=== PATIENT | male | born 1950 | race Two or more races ===

== ENCOUNTER 2017-07-08 13:53 | Inpatient (IN) | payer MEDICAID ==
[~2017-07-08] VITALS: Ht 180.3 cm; Wt 81.6 kg
[2017-07-08 13:53] VITALS: BP 162/78
[~2017-07-08 13:53] MED LIST: NKM
--- NOTE | 2017-07-08 14:56 | Emergency Room Report ---
History of Present Illness General Chief Complaint: Back Pain-No Injury Source: Patient Present Illness HPI 66YOM BIBEMS after fall in the street. Patient states was weak in right lower extremity and fell and also "twisted" his right neck. Was unable to stand/walk after History of degenerative lower back and c-spine from "multiple accidents and falls." Has PMD and has followed up with Neurosurgery who recommended surgery but patient had elected for holistic approach previously. He states repeatedly that his doctor was "more concerned about my neck and chance of paralysis." C/o right lower leg weakness and has occasional urinary retention but not bowel retention Denies saddle weakness, loss of sensation Also c/o tightness to right side of neck and sharp pains to right neck that radiates to shoulder and down right arm history of HTN Allergies: Coded Allergies: No Known Allergies (Unverified , 07/08/17) Patient History Past Medical History: HTN Past Surgical History: none Pertinent Family History: none Social History: Denies: smoking, alcohol use, drug use Immunizations: UTD Reviewed Nursing Documentation: PMH: Agreed, PSxH: Agreed Nursing Documentation-PMH Past Medical History: No History, Except For Hx Hypertension: Yes Review of Systems All Other Systems: negative except mentioned in HPI Physical Exam Vital Signs Date Time Temp Pulse Resp B/P (MAP) Pulse Ox O2 Delivery O2 Flow Rate FiO2 07/08/17 13:43 97.9 67 18 151/101 97 Room Air Sp02 EP Interpretation: reviewed, normal General Appearance: normal inspection, well appearing, no apparent distress, alert, GCS 15, non-toxic Head: normocephalic, atraumatic Eyes: bilateral eye PERRL, bilateral eye EOMI ENT: normal ENT inspection, hearing grossly normal, normal voice Neck: tender midline, other - Right paravertebral ttp Respiratory: normal inspection, lungs clear, normal breath sounds, no respiratory distress, no retraction, no wheezing Cardiovascular #1: regular rate, rhythm, no edema Gastrointestinal: normal inspection, normal bowel sounds, non tender, soft, no guarding, no hernia Genitourinary: no CVA tenderness Musculoskeletal: normal inspection, back normal, normal range of motion, Renetta' s Sign negative Neurologic: normal inspection, alert, responsive, 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 4/5 right lower extremity strength. Psychiatric: normal inspection, judgement/insight normal, mood/affect normal Skin: normal inspection, normal color, no rash Lymphatic: normal inspection Medical Decision Making Diagnostic Impression: Primary Impression: Fall Qualified Codes: W19.XXXA - Unspecified fall, initial encounter Additional Impressions: Weakness Cervicalgia Spinal stenosis in cervical region Protrusion of intervertebral disc of lumbosacral region ER Course S/p fall from ?acute onset right lower extremity weakness with neck sprain MRI c-spine and L-spine shows multi levels degenerative disease, disc protrusion Notable C5-6 spinal stenosis NO CORD COMPRESSION Labs ok Dr Garcia requesting Dr Sahni for med/surg admission med/surg bed at 433pm Last Vital Signs Date Time Temp Pulse Resp B/P (MAP) Pulse Ox O2 Delivery O2 Flow Rate FiO2 07/08/17 13:53 65 16 162/78 98 Room Air 07/08/17 13:43 97.9 Status: improved Disposition: ADMITTED INPATIENT Condition: Serious PANFILO WIN M.D. Jul 08, 2017 14:55
[2017-07-08 15:25] LABS: BASOPHILS % (AUTO) 0.6 % (0.0-2.0); EOSINOPHILS % (AUTO) 0.4 % (0.0-3.0); LYMPHOCYTES % (AUTO) 14.6 % (20.0-45.0); MEAN CORPUSCULAR HEMOGLOBIN 30.3 PG (27.0-31.0); MEAN CORPUSCULAR HGB CONC 33.2 G/DL (32.0-36.0); MEAN CORPUSCULAR VOLUME 91 FL (80-99); MEAN PLATELET VOLUME 7.3 FL (6.5-10.1); MONOCYTES % (AUTO) 5.2 % (1.0-10.0); NEUTROPHILS % (AUTO) 79.3 % (45.0-75.0); PLATELET COUNT 182 K/UL (150-450); RED BLOOD COUNT 5.44 M/UL (4.70-6.10); RED CELL DISTRIBUTION WIDTH 11.2 % (11.6-14.8); WHITE BLOOD COUNT 8.3 K/UL (4.8-10.8)
[2017-07-08 15:32] LABS: ALANINE AMINOTRANSFERASE 15 U/L (3-41); ALBUMIN/GLOBULIN RATIO 1.5 (1.0-2.7); ANION GAP 12 (5-15); ASPARTATE AMINO TRANSFERASE 21 U/L (5-40); CALCIUM 9.2 mg/dL (8.6-10.2); CARBON DIOXIDE 25 mEQ/L (20-30); CHLORIDE 105 mEQ/L (98-107); CREATININE 1.1 mg/dL (0.7-1.2); GLOMERULAR FILTRATION RATE > 60 mL/min (>60); HEMOLYSIS 9; POTASSIUM 3.8 mEQ/L (3.4-4.9); SODIUM 142 mEQ/L (135-145); TOTAL PROTEIN 6.7 g/dL (6.6-8.7)
[2017-07-08 16:14] VITALS: BP 165/85
--- NOTE | 2017-07-08 16:24 | Diagnostic Imaging Report ---
Indication: Neck pain low back pain, history of fall Technique: Sagittal T1 and T2 fast spin echo, sagittal STIR, axial T1 and T2 fast spin-echo images of the lumbar spine Comparison: None Findings: Vertebral body heights are preserved. Bony alignment is normal. Vertebral body marrow signal is preserved. There are hemangiomas within the L1 and L2 vertebral body, as well as within S2. The conus medullaris terminates at the L1 level. At L1-2, there is mild degenerative disc narrowing and irregularity of the inferior L1 endplates. There is mild circumferential annular bulge. This does not significantly impinge on the spinal canal, may result in mild compromise of the bilateral neural foramina. There is suggestion of a component of right paracentral disc protrusion which measures approximately 4 x 6 mm which may impinge upon the right lateral recess. At L2-3, there is mild degenerative disc narrowing. There is circumferential annular bulge. There is also a left paracentral disc protrusion, with the protruding disc extending approximately 4 mm beyond the posterior margin of the vertebral body. This may impinge upon the left lateral recess. There may be mild neural foraminal narrowing bilaterally as well. No significant spinal stenosis is demonstrated. Small amount of fluid is seen within the left facet. At L3-4, there is mild circumferential annular bulge. This results in mild compromise of the bilateral neural foramina, right greater than left, may impinge slightly upon the bilateral lateral recesses. No significant disc narrowing demonstrated. No significant spinal stenosis. At L4-5, there is mild central disc protrusion. This does not significantly compromise the spinal canal. There may be mild neural foraminal compromise bilaterally. The disc space is preserved. There is bilateral facet degeneration at this level . At the remaining disc levels, no significant disc bulge or protrusion, disc space narrowing, spinal stenosis, or neural foraminal stenosis. The bladder appears to be distended. The remaining extraspinal soft tissues are unremarkable. Impression: No evidence of acute bony trauma Multilevel degenerative changes, as delineated on a level by level basis above. Most significantly, there is right paracentral disc protrusion at L1-2 and left paracentral disc protrusion at L2-3, either of which may be significant Distended bladder incidentally noted
--- NOTE | 2017-07-08 16:30 | Diagnostic Imaging Report ---
Indication: Neck pain and low back pain, history of fall today Technique: Sagittal T1 FLAIR PROPELLER, sagittal T2 PROPELLOR, sagittal STIR, axial T2 PROPELLER, axial 3D COSMIC ASPIR images were obtained through the cervical spine Comparison: None Findings: Bony alignment is normal. Vertebral body marrow signal is preserved. Vertebral body heights are preserved. No significant soft tissue edema demonstrated. The intrinsic cord signal appears normal. At C4-5, there is mild circumferential annular bulge. This is not significantly impinge upon the spinal canal. The neural foramina are preserved. The disc space is preserved At C5-6, there is degenerative disc narrowing. There is circumferential annular bulge, which results in moderate narrowing of the spinal canal, minimum AP dimension 8 mm. A small amount of high signal is seen within the bulging disc posteriorly. There is also moderate bilateral neural foraminal stenosis at this level. At C6-7, there is minimal degenerative disc narrowing. There is mild circumferential annular bulge, which does not severely compromise the spinal canal. There is mild right and moderate to severe left neural foraminal stenosis, predominantly due to uncinate hypertrophy. At the remaining levels, no significant disc space narrowing, disc bulge or protrusion, spinal stenosis, or neural foraminal narrowing. The included extraspinal soft tissues are grossly unremarkable. Impression: No definite MRI evidence of acute bony or soft tissue trauma Multilevel degenerative changes, as detailed above. This is most significant at C5-6, where there is spinal stenosis due to disc bulge as well as bilateral neural foraminal stenosis. There is also possibly significant neural foraminal stenosis at C6-7
[2017-07-08 16:47] LABS: APPEARANCE,URINE CLEAR; KETONES,URINE NEGATIVE (NEGATIVE); LEUKOCYTE ESTERASE ,URINE NEGATIVE (NEGATIVE); NITRITE,URINE NEGATIVE (NEGATIVE); PH,URINE 8 (4.5-8.0); PROTEIN,URINE NEGATIVE (NEGATIVE); UROBILINOGEN,URINE NORMAL MG/DL (0.0-1.0)
[2017-07-08 17:37] VITALS: BP 153/95
[2017-07-08] MEDS ORDERED: Mylanta II UD 30ml ORAL PRN (17:45)
[2017-07-08] MEDS ORDERED: Morphine Sulfate 4mg/ml Inj IVP PRN (17:45)
[2017-07-08] MEDS ORDERED: Morphine Sulfate 2mg/ml Inj IVP PRN ×2 (17:45→18:00)
[2017-07-08] MEDS ORDERED: LORazepam Inj 2mg/ml 1ml IV PRN (17:45)
[2017-07-08 20:00] VITALS: BP 143/94
[2017-07-08] MEDS: Heparin 5000 units/ml inj SUBQ SCH (20:26)
[2017-07-08] MEDS ORDERED: Miralax 17gm pkt ORAL PRN (21:00)
[2017-07-08] MEDS ORDERED: Zolpidem 5mg tab ORAL PRN (21:00)
[2017-07-09] VITALS: BP 139/84
[2017-07-09 04:17] VITALS: BP 123/75
[2017-07-09 07:09] LABS: ALANINE AMINOTRANSFERASE 14 U/L (3-41); ALBUMIN/GLOBULIN RATIO 1.5 (1.0-2.7); ANION GAP 11 (5-15); ASPARTATE AMINO TRANSFERASE 19 U/L (5-40); CALCIUM 8.8 mg/dL (8.6-10.2); CARBON DIOXIDE 26 mEQ/L (20-30); CHLORIDE 108 mEQ/L (98-107); CREATININE 1.2 mg/dL (0.7-1.2); GLOMERULAR FILTRATION RATE > 60 mL/min (>60); HEMOLYSIS 6; SODIUM 145 mEQ/L (135-145); TOTAL PROTEIN 6.3 g/dL (6.6-8.7)
[2017-07-09 07:16] LABS: BASOPHILS % (AUTO) 0.7 % (0.0-2.0); EOSINOPHILS % (AUTO) 0.7 % (0.0-3.0); LYMPHOCYTES % (AUTO) 27.5 % (20.0-45.0); MEAN CORPUSCULAR HEMOGLOBIN 31.8 PG (27.0-31.0); MEAN CORPUSCULAR HGB CONC 34.4 G/DL (32.0-36.0); MEAN CORPUSCULAR VOLUME 92 FL (80-99); MEAN PLATELET VOLUME 7.6 FL (6.5-10.1); NEUTROPHILS % (AUTO) 63.1 % (45.0-75.0); PLATELET COUNT 180 K/UL (150-450); RED BLOOD COUNT 5.05 M/UL (4.70-6.10); RED CELL DISTRIBUTION WIDTH 11.1 % (11.6-14.8)
[2017-07-09 08:00] VITALS: BP 158/100
--- NOTE | 2017-07-09 08:28 | Consultation ---
History of Present Illness General Date patient seen: Jul 09, 2017 Chief Complaint: Back Pain-No Injury Present Illness Allergies: Coded Allergies: No Known Allergies (Unverified , 07/08/17) Medication History Scheduled No Known Medications* (NKM - No Known Medications*), 0 ., (Reported) Patient History Healthcare decision maker Edel Lopez, guillermo Resuscitation status Full Code Advanced Directive on File No Physical Exam Last 24 Hour Vital Signs Date Time Temp Pulse Resp B/P (MAP) Pulse Ox O2 Delivery O2 Flow Rate FiO2 07/09/17 08:00 97.0 62 18 158/100 99 Room Air 07/09/17 04:17 98.2 59 21 123/75 99 Room Air 07/09/17 00:00 98.2 56 21 139/84 98 Room Air 07/08/17 20:00 98.2 64 20 143/94 97 Room Air 07/08/17 17:37 97.9 65 20 153/95 97 Room Air 07/08/17 17:09 98.3 62 14 165/85 98 Room Air 07/08/17 16:14 98.3 62 14 165/85 98 Room Air 07/08/17 13:53 65 16 162/78 98 Room Air 07/08/17 13:43 97.9 67 18 151/101 97 Room Air Laboratory Tests Test 07/08/17 14:57 07/08/17 16:33 07/09/17 05:35 White Blood Count 8.3 K/UL (4.8-10.8) 7.0 K/UL (4.8-10.8) Red Blood Count 5.44 M/UL (4.70-6.10) 5.05 M/UL (4.70-6.10) Hemoglobin 16.5 G/DL (14.2-18.0) 16.1 G/DL (14.2-18.0) Hematocrit 49.7 % (42.0-52.0) 46.6 % (42.0-52.0) Mean Corpuscular Volume 91 FL (80-99) 92 FL (80-99) Mean Corpuscular Hemoglobin 30.3 PG (27.0-31.0) 31.8 PG (27.0-31.0) H Mean Corpuscular Hemoglobin Concent 33.2 G/DL (32.0-36.0) 34.4 G/DL (32.0-36.0) Red Cell Distribution Width 11.2 % (11.6-14.8) L 11.1 % (11.6-14.8) L Platelet Count 182 K/UL (150-450) 180 K/UL (150-450) Mean Platelet Volume 7.3 FL (6.5-10.1) 7.6 FL (6.5-10.1) Neutrophils (%) (Auto) 79.3 % (45.0-75.0) H 63.1 % (45.0-75.0) Lymphocytes (%) (Auto) 14.6 % (20.0-45.0) L 27.5 % (20.0-45.0) Monocytes (%) (Auto) 5.2 % (1.0-10.0) 8.0 % (1.0-10.0) Eosinophils (%) (Auto) 0.4 % (0.0-3.0) 0.7 % (0.0-3.0) Basophils (%) (Auto) 0.6 % (0.0-2.0) 0.7 % (0.0-2.0) Sodium Level 142 mEQ/L (135-145) 145 mEQ/L (135-145) Potassium Level 3.8 mEQ/L (3.4-4.9) 4.0 mEQ/L (3.4-4.9) Chloride Level 105 mEQ/L (98-107) 108 mEQ/L (98-107) H Carbon Dioxide Level 25 mEQ/L (20-30) 26 mEQ/L (20-30) Anion Gap 12 (5-15) 11 (5-15) Blood Urea Nitrogen 14 mg/dL (7-23) 13 mg/dL (7-23) Creatinine 1.1 mg/dL (0.7-1.2) 1.2 mg/dL (0.7-1.2) Estimat Glomerular Filtration Rate > 60 mL/min (>60) > 60 mL/min (>60) Glucose Level 124 mg/dL (74-106) H 90 mg/dL (74-106) Calcium Level 9.2 mg/dL (8.6-10.2) 8.8 mg/dL (8.6-10.2) Total Bilirubin 0.3 mg/dL (0.0-1.2) 0.4 mg/dL (0.0-1.2) Aspartate Amino Transf (AST/SGOT) 21 U/L (5-40) 19 U/L (5-40) Alanine Aminotransferase (ALT/SGPT) 15 U/L (3-41) 14 U/L (3-41) Alkaline Phosphatase 50 U/L (40-129) 46 U/L (40-129) Total Protein 6.7 g/dL (6.6-8.7) 6.3 g/dL (6.6-8.7) L Albumin 4.1 g/dL (3.5-5.2) 3.8 g/dL (3.5-5.2) Globulin 2.6 g/dL 2.5 g/dL Albumin/Globulin Ratio 1.5 (1.0-2.7) 1.5 (1.0-2.7) Urine Color Pale yellow Urine Appearance Clear Urine pH 8 (4.5-8.0) Urine Specific [place] 1.010 (1.005-1.035) Urine Protein Negative (NEGATIVE) Urine Glucose (UA) Negative (NEGATIVE) Urine Ketones Negative (NEGATIVE) Urine Occult Blood Negative (NEGATIVE) Urine Nitrite Negative (NEGATIVE) Urine Bilirubin Negative (NEGATIVE) Urine Urobilinogen Normal MG/DL (0.0-1.0) Urine Leukocyte Esterase Negative (NEGATIVE) Thyroid Stimulating Hormone (TSH) 3.640 uIU/mL (0.300-4.500) Height (Feet): 5 Height (Inches): 11.00 Weight (Pounds): 180 Medications Current Medications Medications (Trade) Dose Ordered Sig/Amelia Route PRN Reason Start Time Stop Time Status Last Admin Dose Admin Acetaminophen (Tylenol) 650 mg Q4H PRN ORAL T>100.5 07/08/17 17:45 08/07/17 17:44 Al Hydroxide/Mg Hydroxide (Mylanta II) 30 ml Q6H PRN ORAL dyspepsia 07/08/17 17:45 08/07/17 17:44 Dextrose (Dextrose 50%) STAT PRN IV Hypoglycemia 07/08/17 17:45 08/07/17 17:44 Heparin Sodium (Porcine) (Heparin 5000 units/ml) 5,000 units EVERY 12 HOURS SUBQ 9/25/17 21:00 08/07/17 20:59 Lorazepam (Ativan 2mg/ml 1ml) 0.5 mg Q4H PRN IV For Anxiety 07/08/17 17:45 07/15/17 17:44 Morphine Sulfate (Morphine Sulfate) 2 mg Q4H PRN IVP Moderate Pain (Pain Scale 4-6) 07/08/17 18:00 07/15/17 17:44 Morphine Sulfate (Morphine Sulfate) 4 mg Q4H PRN IVP Severe Pain (Pain Scale 7-10) 07/08/17 17:45 07/15/17 17:44 Ondansetron HCl (Zofran) 4 mg Q6H PRN IVP Nausea & Vomiting 07/08/17 17:45 08/07/17 17:44 Polyethylene Glycol (Miralax) 17 gm HSPRN PRN ORAL Constipation 07/08/17 21:00 08/07/17 20:59 Zolpidem Tartrate (Ambien) 5 mg HSPRN PRN ORAL Insomnia 07/08/17 21:00 07/15/17 20:59 Assessment/Plan Assessment/Plan (1) Cervical and Lumbar DDD (2) Cervical and Lumbar Spondylosis (3) Cervical and Lumbar Herniated Disc (4) Cervical and Lumbar Radiculopathy (5) Cervical Spinal stenosis seen dictated ALTON NORMAN Jul 09, 2017 08:28
[2017-07-09] MEDS: Heparin 5000 units/ml inj SUBQ SCH ×2 (09:00→20:03)
[2017-07-09] MEDS ORDERED: Methocarbamol 500mg tab ORAL PRN (09:00)
[2017-07-09] MEDS ORDERED: Norco 5mg/325mg tab ORAL PRN (09:00)
[2017-07-09 12:00] VITALS: BP 156/94
--- NOTE | 2017-07-09 12:21 | Neurology Progress Note ---
Objective Physical Exam Last Vital Signs Date Time Temp Pulse Resp B/P (MAP) Pulse Ox O2 Delivery O2 Flow Rate FiO2 07/09/17 08:00 97.0 62 18 158/100 99 Room Air Laboratory Tests Test 07/08/17 14:57 07/08/17 16:33 07/09/17 05:35 White Blood Count 8.3 K/UL (4.8-10.8) 7.0 K/UL (4.8-10.8) Red Blood Count 5.44 M/UL (4.70-6.10) 5.05 M/UL (4.70-6.10) Hemoglobin 16.5 G/DL (14.2-18.0) 16.1 G/DL (14.2-18.0) Hematocrit 49.7 % (42.0-52.0) 46.6 % (42.0-52.0) Mean Corpuscular Volume 91 FL (80-99) 92 FL (80-99) Mean Corpuscular Hemoglobin 30.3 PG (27.0-31.0) 31.8 PG (27.0-31.0) H Mean Corpuscular Hemoglobin Concent 33.2 G/DL (32.0-36.0) 34.4 G/DL (32.0-36.0) Red Cell Distribution Width 11.2 % (11.6-14.8) L 11.1 % (11.6-14.8) L Platelet Count 182 K/UL (150-450) 180 K/UL (150-450) Mean Platelet Volume 7.3 FL (6.5-10.1) 7.6 FL (6.5-10.1) Neutrophils (%) (Auto) 79.3 % (45.0-75.0) H 63.1 % (45.0-75.0) Lymphocytes (%) (Auto) 14.6 % (20.0-45.0) L 27.5 % (20.0-45.0) Monocytes (%) (Auto) 5.2 % (1.0-10.0) 8.0 % (1.0-10.0) Eosinophils (%) (Auto) 0.4 % (0.0-3.0) 0.7 % (0.0-3.0) Basophils (%) (Auto) 0.6 % (0.0-2.0) 0.7 % (0.0-2.0) Sodium Level 142 mEQ/L (135-145) 145 mEQ/L (135-145) Potassium Level 3.8 mEQ/L (3.4-4.9) 4.0 mEQ/L (3.4-4.9) Chloride Level 105 mEQ/L (98-107) 108 mEQ/L (98-107) H Carbon Dioxide Level 25 mEQ/L (20-30) 26 mEQ/L (20-30) Anion Gap 12 (5-15) 11 (5-15) Blood Urea Nitrogen 14 mg/dL (7-23) 13 mg/dL (7-23) Creatinine 1.1 mg/dL (0.7-1.2) 1.2 mg/dL (0.7-1.2) Estimat Glomerular Filtration Rate > 60 mL/min (>60) > 60 mL/min (>60) Glucose Level 124 mg/dL (74-106) H 90 mg/dL (74-106) Calcium Level 9.2 mg/dL (8.6-10.2) 8.8 mg/dL (8.6-10.2) Total Bilirubin 0.3 mg/dL (0.0-1.2) 0.4 mg/dL (0.0-1.2) Aspartate Amino Transf (AST/SGOT) 21 U/L (5-40) 19 U/L (5-40) Alanine Aminotransferase (ALT/SGPT) 15 U/L (3-41) 14 U/L (3-41) Alkaline Phosphatase 50 U/L (40-129) 46 U/L (40-129) Total Protein 6.7 g/dL (6.6-8.7) 6.3 g/dL (6.6-8.7) L Albumin 4.1 g/dL (3.5-5.2) 3.8 g/dL (3.5-5.2) Globulin 2.6 g/dL 2.5 g/dL Albumin/Globulin Ratio 1.5 (1.0-2.7) 1.5 (1.0-2.7) Urine Color Pale yellow Urine Appearance Clear Urine pH 8 (4.5-8.0) Urine Specific [place] 1.010 (1.005-1.035) Urine Protein Negative (NEGATIVE) Urine Glucose (UA) Negative (NEGATIVE) Urine Ketones Negative (NEGATIVE) Urine Occult Blood Negative (NEGATIVE) Urine Nitrite Negative (NEGATIVE) Urine Bilirubin Negative (NEGATIVE) Urine Urobilinogen Normal MG/DL (0.0-1.0) Urine Leukocyte Esterase Negative (NEGATIVE) Thyroid Stimulating Hormone (TSH) 3.640 uIU/mL (0.300-4.500) Impression/Recommendations Recommendations #[id number] LUIS MUNIZ Jul 09, 2017 12:21
--- NOTE | 2017-07-09 12:55 | Consultation ---
History of Present Illness General Chief Complaint: Back Pain-No Injury Present Illness HPI 66YOM BIBEMS after fall in the street. Patient states was weak in right lower extremity and fell and also "twisted" his right neck. the pt has hx of anxiety d /o and has insomnia. the pt agreed to take remeron. the pt is very tense and has poor insight into his mental. the pt was explained about the side effects. the pt has no si/hi/manic/psychotic sxs. Allergies: Coded Allergies: No Known Allergies (Unverified , 07/08/17) Medication History Scheduled No Known Medications* (NKM - No Known Medications*), 0 ., (Reported) Patient History History Provided By: Patient, Medical Record, PMD Healthcare decision maker Edel Lopez, Resuscitation status Full Code Advanced Directive on File No Past Medical/Surgical History Past Medical/Surgical History: (1) Cervicalgia (2) Weakness (3) Fall (4) Spinal stenosis in cervical region (5) Protrusion of intervertebral disc of lumbosacral region Review of Systems Constitutional: Reports: weakness Psychiatric: Reports: prior hx, anxiety, depressed feelings, emotional problems Physical Exam General Appearance: alert, mild distress, thin Neurologic: alert, oriented x 3, responsive, depressed affect Last 24 Hour Vital Signs Date Time Temp Pulse Resp B/P (MAP) Pulse Ox O2 Delivery O2 Flow Rate FiO2 07/09/17 08:00 97.0 62 18 158/100 99 Room Air 07/09/17 04:17 98.2 59 21 123/75 99 Room Air 07/09/17 00:00 98.2 56 21 139/84 98 Room Air 07/08/17 20:00 98.2 64 20 143/94 97 Room Air 07/08/17 17:37 97.9 65 20 153/95 97 Room Air 07/08/17 17:09 98.3 62 14 165/85 98 Room Air 07/08/17 16:14 98.3 62 14 165/85 98 Room Air 07/08/17 13:53 65 16 162/78 98 Room Air 07/08/17 13:43 97.9 67 18 151/101 97 Room Air Laboratory Tests Test 07/08/17 14:57 07/08/17 16:33 07/09/17 05:35 White Blood Count 8.3 K/UL (4.8-10.8) 7.0 K/UL (4.8-10.8) Red Blood Count 5.44 M/UL (4.70-6.10) 5.05 M/UL (4.70-6.10) Hemoglobin 16.5 G/DL (14.2-18.0) 16.1 G/DL (14.2-18.0) Hematocrit 49.7 % (42.0-52.0) 46.6 % (42.0-52.0) Mean Corpuscular Volume 91 FL (80-99) 92 FL (80-99) Mean Corpuscular Hemoglobin 30.3 PG (27.0-31.0) 31.8 PG (27.0-31.0) H Mean Corpuscular Hemoglobin Concent 33.2 G/DL (32.0-36.0) 34.4 G/DL (32.0-36.0) Red Cell Distribution Width 11.2 % (11.6-14.8) L 11.1 % (11.6-14.8) L Platelet Count 182 K/UL (150-450) 180 K/UL (150-450) Mean Platelet Volume 7.3 FL (6.5-10.1) 7.6 FL (6.5-10.1) Neutrophils (%) (Auto) 79.3 % (45.0-75.0) H 63.1 % (45.0-75.0) Lymphocytes (%) (Auto) 14.6 % (20.0-45.0) L 27.5 % (20.0-45.0) Monocytes (%) (Auto) 5.2 % (1.0-10.0) 8.0 % (1.0-10.0) Eosinophils (%) (Auto) 0.4 % (0.0-3.0) 0.7 % (0.0-3.0) Basophils (%) (Auto) 0.6 % (0.0-2.0) 0.7 % (0.0-2.0) Sodium Level 142 mEQ/L (135-145) 145 mEQ/L (135-145) Potassium Level 3.8 mEQ/L (3.4-4.9) 4.0 mEQ/L (3.4-4.9) Chloride Level 105 mEQ/L (98-107) 108 mEQ/L (98-107) H Carbon Dioxide Level 25 mEQ/L (20-30) 26 mEQ/L (20-30) Anion Gap 12 (5-15) 11 (5-15) Blood Urea Nitrogen 14 mg/dL (7-23) 13 mg/dL (7-23) Creatinine 1.1 mg/dL (0.7-1.2) 1.2 mg/dL (0.7-1.2) Estimat Glomerular Filtration Rate > 60 mL/min (>60) > 60 mL/min (>60) Glucose Level 124 mg/dL (74-106) H 90 mg/dL (74-106) Calcium Level 9.2 mg/dL (8.6-10.2) 8.8 mg/dL (8.6-10.2) Total Bilirubin 0.3 mg/dL (0.0-1.2) 0.4 mg/dL (0.0-1.2) Aspartate Amino Transf (AST/SGOT) 21 U/L (5-40) 19 U/L (5-40) Alanine Aminotransferase (ALT/SGPT) 15 U/L (3-41) 14 U/L (3-41) Alkaline Phosphatase 50 U/L (40-129) 46 U/L (40-129) Total Protein 6.7 g/dL (6.6-8.7) 6.3 g/dL (6.6-8.7) L Albumin 4.1 g/dL (3.5-5.2) 3.8 g/dL (3.5-5.2) Globulin 2.6 g/dL 2.5 g/dL Albumin/Globulin Ratio 1.5 (1.0-2.7) 1.5 (1.0-2.7) Urine Color Pale yellow Urine Appearance Clear Urine pH 8 (4.5-8.0) Urine Specific [place] 1.010 (1.005-1.035) Urine Protein Negative (NEGATIVE) Urine Glucose (UA) Negative (NEGATIVE) Urine Ketones Negative (NEGATIVE) Urine Occult Blood Negative (NEGATIVE) Urine Nitrite Negative (NEGATIVE) Urine Bilirubin Negative (NEGATIVE) Urine Urobilinogen Normal MG/DL (0.0-1.0) Urine Leukocyte Esterase Negative (NEGATIVE) Thyroid Stimulating Hormone (TSH) 3.640 uIU/mL (0.300-4.500) Height (Feet): 5 Height (Inches): 11.00 Weight (Pounds): 180 Medications Current Medications Medications (Trade) Dose Ordered Sig/Amelia Route PRN Reason Start Time Stop Time Status Last Admin Dose Admin Acetaminophen (Tylenol) 650 mg Q4H PRN ORAL T>100.5 07/08/17 17:45 08/07/17 17:44 Acetaminophen/ Hydrocodone Bitart ([place] 5/325) 1 tab Q4H PRN ORAL Severe Pain (Pain Scale 7-10) 07/09/17 09:00 07/16/17 08:59 Al Hydroxide/Mg Hydroxide (Mylanta II) 30 ml Q6H PRN ORAL dyspepsia 07/08/17 17:45 08/07/17 17:44 Dextrose (Dextrose 50%) STAT PRN IV Hypoglycemia 07/08/17 17:45 08/07/17 17:44 Gabapentin (Neurontin) 300 mg THREE TIMES A DAY ORAL 07/09/17 09:00 08/08/17 08:59 Heparin Sodium (Porcine) (Heparin 5000 units/ml) 5,000 units EVERY 12 HOURS SUBQ 07/08/17 21:00 08/07/17 20:59 Lorazepam (Ativan 2mg/ml 1ml) 0.5 mg Q4H PRN IV For Anxiety 07/08/17 17:45 07/15/17 17:44 Methocarbamol (Robaxin) 500 mg Q8H PRN ORAL muscle spasm 07/09/17 09:00 08/08/17 08:59 Ondansetron HCl (Zofran) 4 mg Q6H PRN IVP Nausea & Vomiting 07/08/17 17:45 08/07/17 17:44 Polyethylene Glycol (Miralax) 17 gm HSPRN PRN ORAL Constipation 07/08/17 21:00 08/07/17 20:59 Zolpidem Tartrate (Ambien) 5 mg HSPRN PRN ORAL Insomnia 07/08/17 21:00 07/15/17 20:59 Assessment/Plan Status: stable, progressing Assessment/Plan Anxiety d/o remeron 7.5 mg qhs Khloe Carpenter M.D. Jul 09, 2017 12:55
[2017-07-09 16:00] VITALS: BP 161/98
--- NOTE | 2017-07-09 16:55 | Cardiac Electrophysiology PN ---
Subjective Subjective Consult dictated. DW family and Dr Davenport at bedside.[id number] Objective Last 24 Hour Vital Signs Date Time Temp Pulse Resp B/P (MAP) Pulse Ox O2 Delivery O2 Flow Rate FiO2 07/09/17 12:00 60 18 156/94 97 Room Air 07/09/17 08:00 97.0 62 18 158/100 99 Room Air 07/09/17 04:17 98.2 59 21 123/75 99 Room Air 07/09/17 00:00 98.2 56 21 139/84 98 Room Air 07/08/17 20:00 98.2 64 20 143/94 97 Room Air 07/08/17 17:37 97.9 65 20 153/95 97 Room Air 07/08/17 17:09 98.3 62 14 165/85 98 Room Air Laboratory Tests Test 07/09/17 05:35 White Blood Count 7.0 K/UL (4.8-10.8) Red Blood Count 5.05 M/UL (4.70-6.10) Hemoglobin 16.1 G/DL (14.2-18.0) Hematocrit 46.6 % (42.0-52.0) Mean Corpuscular Volume 92 FL (80-99) Mean Corpuscular Hemoglobin 31.8 PG (27.0-31.0) H Mean Corpuscular Hemoglobin Concent 34.4 G/DL (32.0-36.0) Red Cell Distribution Width 11.1 % (11.6-14.8) L Platelet Count 180 K/UL (150-450) Mean Platelet Volume 7.6 FL (6.5-10.1) Neutrophils (%) (Auto) 63.1 % (45.0-75.0) Lymphocytes (%) (Auto) 27.5 % (20.0-45.0) Monocytes (%) (Auto) 8.0 % (1.0-10.0) Eosinophils (%) (Auto) 0.7 % (0.0-3.0) Basophils (%) (Auto) 0.7 % (0.0-2.0) Sodium Level 145 mEQ/L (135-145) Potassium Level 4.0 mEQ/L (3.4-4.9) Chloride Level 108 mEQ/L (98-107) H Carbon Dioxide Level 26 mEQ/L (20-30) Anion Gap 11 (5-15) Blood Urea Nitrogen 13 mg/dL (7-23) Creatinine 1.2 mg/dL (0.7-1.2) Estimat Glomerular Filtration Rate > 60 mL/min (>60) Glucose Level 90 mg/dL (74-106) Calcium Level 8.8 mg/dL (8.6-10.2) Total Bilirubin 0.4 mg/dL (0.0-1.2) Aspartate Amino Transf (AST/SGOT) 19 U/L (5-40) Alanine Aminotransferase (ALT/SGPT) 14 U/L (3-41) Alkaline Phosphatase 46 U/L (40-129) Total Protein 6.3 g/dL (6.6-8.7) L Albumin 3.8 g/dL (3.5-5.2) Globulin 2.5 g/dL Albumin/Globulin Ratio 1.5 (1.0-2.7) Thyroid Stimulating Hormone (TSH) 3.640 uIU/mL (0.300-4.500) FELTON JAMES Jul 09, 2017 16:55
--- NOTE | 2017-07-09 16:58 | History & Physical ---
History and Physical History & Physicial Dictated for Int Med - Dr Sahni no. [id number]. MIGUELINA CARCAMO Jul 09, 2017 16:58
[2017-07-09 20:00] VITALS: BP 133/72
--- NOTE | 2017-07-09 20:15 | Consultation ---
DATE OF CONSULTATION: 07/09/2017 NEUROLOGICAL CONSULTATION CONSULTING PHYSICIAN: Layo Robertson M.D. REQUESTING PHYSICIAN: Pieter Sahni M.D. History Of Present Illness: This is a 66-year-old man seen in neurological consultation to evaluate persistent pain and discomfort in upper and lower back radiating to right upper and lower extremity. Lower extremity is causing intermittent give-way weakness with fall. According to the patient yesterday while on a street, his right leg gave out causing to fall twisting his upper and lower back. The patient remained lying on the ground and was unable to stand up or ambulate. The patient was brought to this facility, complaining of weakness in the right lower extremity, and occasional urinary retention. There was no loss of sensation. He complains of tightness to right side of the neck, radiating to the right shoulder down to the right arm. On admission, vital signs included blood pressure 151/101 and temperature 97.9 degrees. Stat imaging studies were requested including MRI of the cervical spine, this revealed no definitive signs of injury. There was a multilevel degenerative joint disease changes with annular bulging at C5-C6 with moderate narrowing of the spinal canal and moderate neural foraminal stenosis bilaterally. There was a nleeycom-ai-bmursd left neural foraminal stenosis at C6-C7 level. There was no cord compression or impingement upon exiting nerves noted. MRI of the lumbar spine revealed no fracture or dislocation. There was a component of right paracentral disk protrusion, which may impinge upon the right lateral recess at L1-L2 level, left paracentral disk protrusion at L2-L3 region, this may impinge up on left lateral recess, and at L4-L5 mild central disk protrusion. There is no evidence of acute fracture or dislocation, distended bladder accidentally noted. Lab work included normal CBC study. Chemistry panel with blood sugar 124. Normal TSH. Urinalysis was normal. While under observation, blood pressure fluctuating up to 158/100 and heart rate down to 56. Pain management assessment was obtained. His treatment now included Tylenol, Neurontin 300 mg t.i.d., subcutaneous heparin, Saragosa p.r.n., lorazepam p.r.n., Robaxin p.r.n., Zofran p.r.n., MiraLAX, and zolpidem. Past Medical History: The patient indicated that about 25 years ago, [place] and "assembler body" offered him some therapy, so he put his in a face-down, then jumped up and down on his lower back causing him severe "contractions of body and chest." He is not the same since, continued to have contractions sensation in his body, chest, but also face and neck. A few years later, he had an episode when he fell accidentally on his upper back. He could not move for one day "being like paralyzed." Periodically, he has exacerbation of his condition lasting up to three weeks usually provoked by bending over, developing acute spasming pain in his low back, difficulty moving his both lower extremities, and pain slightly subsiding in supine position, but completely interrupting his sleep. The patient indicated that he has chronic sleep abnormality claiming that he sleeps no more than two hours a night total. He instead "is praying and does holistic approach." SOCIAL HISTORY: . 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 No alcohol. No drug abuse. Nonsmoker. He is from [place], in and out traveling to [facility]. FAMILY HISTORY: Noncontributory. Review Of Systems: Currently complaining of pain in the mid and the right side of the lower back radiating as a tingling sensation to his right lower extremity, with the legs gives out sometimes. He has right side of the neck and upper back pain radiating to right shoulder blade and right upper extremity. At times, he feels like "nerve in my lower back goes all the way to my head, at that point, I cannot sleep." Previous treatment included Arthrotec, and use of Motrin and Tylenol which are not helping much. He has history of hypertension, benign prostatic hypertrophy, and he was told he has cardiomegaly. No chest pain. No palpitations. No respiratory problems. Denies abdominal pain or discomfort. No urine or bowel incontinence. He admits being depressed because of "my condition." PHYSICAL EXAMINATION: General: A well-developed and well-nourished man, not in acute distress, lying comfortably in bed. VITAL SIGNS: Stable. Blood pressure 158/100 and respirations 18. HEENT: Head, normocephalic. No evidence of trauma. Eyes, ears, and throat are clear. Neck: Rigid in all directions. There is palpable tenderness in the right cervical paraspinal region, right upper trapezius, and right cervical paraspinal area. There is acute tenderness to palpation over the lumbar paraspinal region. Straight leg raising test 10 degrees on the right and 15 degrees on the left, but able to sit up at the angle of at least 90 degrees. MUSCULOSKELETAL: Peripheral pulses 1+ symmetric. Mental Status: He is alert and oriented x3 with no evidence of aphasia or apraxia. Cognitive function normal. Emotionally labile, tense, anxious, somewhat depressed, and constantly asking to help his condition for the last 25 years. He indicated that he has resorted predominantly to holistic medicine and reluctant to take medications. Cranial Nerve II: Pupils both responding to light and accommodation. Extraocular movement intact. No nystagmus. CRANIAL NERVE V: Normal corneal responses. CRANIAL NERVE VII: Slight drooped right nasolabial fold. CRANIAL NERVE VIII: Normal hearing. CRANIAL NERVES IX THROUGH XII: Within normal limits. Motor Examination: Slight pronation drift at upper extremity, antalgic both lower extremities, but able to move against the gravity all limbs. Repetitive finger tapping, normal on the left, very slow on the right. Deep tendon reflexes, 1+ bilaterally and symmetric. Plantar responses mute. Sensory Examination: Decreased response to pin stimulation. Non-dermatomal distribution right upper and right lower extremity. Coordination: Normal uguwuo-[id number] test and unable to perform [id number]-ap-[id number] test. He was able to get up on his own, but very antalgic and very slow. Standing with a stooped position. Able to walk very slowly. IMPRESSION: 1. Cervical spondylosis with right C5 radiculopathy. 2. Lumbar spondylosis with right L5 radiculopathy. 3. Chronic pain syndrome. 4. Anxiety with somatization. 5. Rule out underlying depression. 6. Hypertension. RECOMMENDATION: 1. Get CHIKIS, sedimentation rate, CRP, B12, folate, thyroid function, and CPK. 2. Have a Psychiatry assessment. Start on antidepressants and antianxiety medications presumably Remeron to improve his sleep as well. 3. Continue with physical therapy applied to upper and lower back. No surgical treatment at this time necessary. Continue with anti-inflammatory treatment and muscle relaxants. Continue with Neurontin 300 mg daily and Robaxin one to two tablets at bedtime. Thank you for allowing me to see this interesting patient in neurological consultation. Layo Burt Robertson DR: PAMELA JOB#: [id number] CC:
--- NOTE | 2017-07-09 22:34 | Consultation ---
History of Present Illness General Date patient seen: Jul 09, 2017 Chief Complaint: Back Pain-No Injury Referring physician: Dr. Davenport Reason for Consultation: possible sleep apnea severe back pain Present Illness HPI 67 yo gentleman with HTN, BPH, history of fall with back injury not recent, history of remote back injury 35 years ago who presents to [facility] ER with c/o severe lower back pains. The patient also reported abnormalities with his sleep and admitted to waking up numerous times at nightime trying to catch his breath and gasping for air. I was asked to educate the patient regarding sleep apnea and also to evaluate the patient from an internal medicine point of view to address his severe low back pain and difficulty sleeping. I have discussed the need for an outpatient sleep study with the patient extensively and the risks of not properly diagnosing and treating a possible sleep apnea diagnosis. The patient does not appear morbidly obese and no history of tracheal or pharyngeal structure abnormalities. Allergies: Coded Allergies: No Known Allergies (Unverified , 07/08/17) Medication History Scheduled Amlodipine Besylate (Norvasc), 5 MG ORAL DAILY Gabapentin (Neurontin), 300 MG ORAL THREE TIMES A DAY Mirtazapine* (Mirtazapine*), 15 MG ORAL BEDTIME No Known Medications* (NKM - No Known Medications*), 0 ., (Reported) Scheduled PRN Hydrocodone Bit/Acetaminophen 5-325* ([place] 5-325*), 1 TAB ORAL Q4H PRN Methocarbamol* (Methocarbamol*), 500 MG ORAL Q8H PRN Patient History Healthcare decision maker Edel Lopez, Resuscitation status Full Code Advanced Directive on File No Past Medical/Surgical History Past Medical/Surgical History: (1) Cardiomegaly (2) HTN (hypertension) (3) BPH (benign prostatic hyperplasia) (4) Fall with injury (5) Bradycardia Review of Systems Constitutional: Reports: malaise, weakness, other - insomnia Musculoskeletal: Reports: back pain, joint pain, muscle pain, muscle stiffness Physical Exam General Appearance: WD/WN, no apparent distress Lines, tubes and drains: peripheral HEENT: normocephalic, atraumatic, anicteric, PERRL Neck: non-tender, normal alignment, supple, normal inspection Respiratory/Chest: chest wall non-tender, normal breath sounds, no respiratory distress, no accessory muscle use Breasts: no masses Cardiovascular/Chest: normal peripheral pulses, normal rate, regular rhythm, no JVD Abdomen: normal bowel sounds, non tender, soft, no organomegaly, no mass Genitourinary/Rectal: normal genital exam, normal rectal exam Extremities: normal range of motion, non-tender, normal inspection, no calf tenderness Skin Exam: normal pigmentation, warm/dry 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, no motor/sensory deficits Last 24 Hour Vital Signs Date Time Temp Pulse Resp B/P (MAP) Pulse Ox O2 Delivery O2 Flow Rate FiO2 07/09/17 20:00 98.1 51 18 133/72 98 Room Air 07/09/17 16:00 97.0 61 18 161/98 94 Room Air 07/09/17 12:00 60 18 156/94 97 Room Air 07/09/17 08:00 97.0 62 18 158/100 99 Room Air 07/09/17 04:17 98.2 59 21 123/75 99 Room Air 07/09/17 00:00 98.2 56 21 139/84 98 Room Air Intake and Output 07/09/17 07/10/17 19:00 07:00 Intake Total 350 ml Balance 350 ml Intake Oral 350 ml # Voids 2 # Bowel Movements 1 Laboratory Tests Test 07/09/17 05:35 White Blood Count 7.0 K/UL (4.8-10.8) Red Blood Count 5.05 M/UL (4.70-6.10) Hemoglobin 16.1 G/DL (14.2-18.0) Hematocrit 46.6 % (42.0-52.0) Mean Corpuscular Volume 92 FL (80-99) Mean Corpuscular Hemoglobin 31.8 PG (27.0-31.0) H Mean Corpuscular Hemoglobin Concent 34.4 G/DL (32.0-36.0) Red Cell Distribution Width 11.1 % (11.6-14.8) L Platelet Count 180 K/UL (150-450) Mean Platelet Volume 7.6 FL (6.5-10.1) Neutrophils (%) (Auto) 63.1 % (45.0-75.0) Lymphocytes (%) (Auto) 27.5 % (20.0-45.0) Monocytes (%) (Auto) 8.0 % (1.0-10.0) Eosinophils (%) (Auto) 0.7 % (0.0-3.0) Basophils (%) (Auto) 0.7 % (0.0-2.0) Sodium Level 145 mEQ/L (135-145) Potassium Level 4.0 mEQ/L (3.4-4.9) Chloride Level 108 mEQ/L (98-107) H Carbon Dioxide Level 26 mEQ/L (20-30) Anion Gap 11 (5-15) Blood Urea Nitrogen 13 mg/dL (7-23) Creatinine 1.2 mg/dL (0.7-1.2) Estimat Glomerular Filtration Rate > 60 mL/min (>60) Glucose Level 90 mg/dL (74-106) Calcium Level 8.8 mg/dL (8.6-10.2) Total Bilirubin 0.4 mg/dL (0.0-1.2) Aspartate Amino Transf (AST/SGOT) 19 U/L (5-40) Alanine Aminotransferase (ALT/SGPT) 14 U/L (3-41) Alkaline Phosphatase 46 U/L (40-129) Total Protein 6.3 g/dL (6.6-8.7) L Albumin 3.8 g/dL (3.5-5.2) Globulin 2.5 g/dL Albumin/Globulin Ratio 1.5 (1.0-2.7) Thyroid Stimulating Hormone (TSH) 3.640 uIU/mL (0.300-4.500) Height (Feet): 5 Height (Inches): 11.00 Weight (Pounds): 180 Medications Current Medications Medications (Trade) Dose Ordered Sig/Amelia Route PRN Reason Start Time Stop Time Status Last Admin Dose Admin Acetaminophen (Tylenol) 650 mg Q4H PRN ORAL T>100.5 07/08/17 17:45 08/07/17 17:44 Acetaminophen/ Hydrocodone Bitart ([place] 5/325) 1 tab Q4H PRN ORAL Severe Pain (Pain Scale 7-10) 07/09/17 09:00 07/16/17 08:59 Al Hydroxide/Mg Hydroxide (Mylanta II) 30 ml Q6H PRN ORAL dyspepsia 07/08/17 17:45 08/07/17 17:44 Amlodipine Besylate (Norvasc) 5 mg DAILY ORAL 07/10/17 09:00 08/09/17 08:59 Clonidine HCl (Catapres) 0.1 mg Q4H PRN ORAL hypertension 07/09/17 17:00 08/08/17 16:59 Dextrose (Dextrose 50%) STAT PRN IV Hypoglycemia 07/08/17 17:45 08/07/17 17:44 Gabapentin (Neurontin) 300 mg THREE TIMES A DAY ORAL 07/09/17 09:00 08/08/17 08:59 07/09/17 18:20 Heparin Sodium (Porcine) (Heparin 5000 units/ml) 5,000 units EVERY 12 HOURS SUBQ 07/08/17 21:00 08/07/17 20:59 Lorazepam (Ativan 2mg/ml 1ml) 0.5 mg Q4H PRN IV For Anxiety 07/08/17 17:45 07/15/17 17:44 Methocarbamol (Robaxin) 500 mg Q8H PRN ORAL muscle spasm 07/09/17 09:00 08/08/17 08:59 Mirtazapine (Remeron) 7.5 mg QHS ORAL 07/09/17 21:00 08/08/17 20:59 07/09/17 20:04 Ondansetron HCl (Zofran) 4 mg Q6H PRN IVP Nausea & Vomiting 07/08/17 17:45 08/07/17 17:44 Polyethylene Glycol (Miralax) 17 gm HSPRN PRN ORAL Constipation 07/08/17 21:00 08/07/17 20:59 Assessment/Plan Status: stable, progressing Assessment/Plan Fall with injury BPH (benign prostatic hyperplasia) HTN (hypertension) Protrusion of intervertebral disc of lumbosacral region Spinal stenosis in cervical region Insomnia Possible undiagnosed sleep apnea Plan Pain management Supplmental oxygen at nighttime Discussed with patient sleep study as out patient recommended PT/OT eval and training as tolerated Computed tomagraphy of lumbosacral spine examined HEYDI CASAREZ Jul 09, 2017 22:34
--- NOTE | 2017-07-10 03:15 | Consultation ---
DATE OF CONSULTATION: 07/09/2017 PAIN MANAGEMENT CONSULTATION CONSULTING PHYSICIAN: Ingrid Floyd M.D. PHYSICIAN MACHINE ADJUSTER: Tasneem Rosas REFERRING PHYSICIAN: Pieter Sahni M.D. CHIEF COMPLAINT: Neck and low back pain. History of present illness: This is a 66-year-old male, who is being seen on the Med/Surg floor of [facility] for initial comprehensive pain management consultation. The patient was having neck and low back pain for 25 years. It is a constant chronic pain, rating it a 9/10. He described the pain as a sharp, throbbing, stabbing, shooting pain radiating down bilateral upper and lower extremities, increased with movement, and nothing has been helping to relieve the pain. The patient was admitted under the care of Dr. Sahni. MRI of the cervical and lumbar spine were done and reviewed with the patient, recommend the patient to do extensive physical therapy and consult with a neurosurgeon and start the patient on Neurontin, Robaxin, and Bradley and discontinue the morphine, which the patient has on board at this time. The patient understands and he has no other complaints at this time. Past medical history: Neck pain, cardiomyopathy, hypertension, enlarged prostate. PAST SURGICAL HISTORY: Denies. Social history: Denies smoking tobacco, drinking alcohol, or drug abuse. ALLERGIES: No known drug allergies. MEDICATIONS: No known medications. Review of systems: Denies rash, fever, chills, sweating, dizziness, drowsiness, blurred vision, sore throat, or change in weight. No shortness of breath or chest pain. No nausea, vomiting, diarrhea, or blood in the stool or urine. No bowel or bladder incontinence. No dysuria. He is complaining of neck and low back pain. PHYSICAL EXAMINATION: GENERAL: Alert, awake, and oriented. Vital Signs: Blood pressure is 158/100, heart rate is 62, oxygen saturation 99%, respiratory rate 18, and temperature 97 degrees Fahrenheit. HEENT: PERRLA. Neck: Range of motion is decreased due to the patient's pain and condition. No tenderness to paracervical muscles. No adenopathy. LUNGS: Clear. HEART: Regular. ABDOMEN: Benign Back: Range of motion is decreased in flexion and extension with tenderness to paraspinal muscles. No tenderness to trapezius or rhomboid muscles. Extremities: Upper extremity range of motion is decreased due to the patient's condition. Motor is -4/5 in all muscles bilaterally. No cyanosis. No clubbing. No edema. Sensory is intact. Reflexes are not obtainable. No adenopathy. Lower extremity motion is decreased due to the patient's condition with motor being -4/5 in all muscles bilaterally. No cyanosis. No clubbing. No edema. Sensory is intact. Reflexes are not obtainable. No adenopathy. RADIOLOGY: 1. MRI of the cervical spine was done without contrast, impression multilevel degenerative changes, most significant at C5-C6 where there is spinal stenosis due to disk bulge as well as bilateral neuroforaminal stenosis at C6-C7. 2. MRI of the lumbar spine without contrast, impression multilevel degenerative changes, most significantly there is a right paracentral disk protrusion at L1-L2 and left paracentral disk appreciated L2-L3. Assessment And Plan: This is a 66-year-old male with cervical and lumbar degenerative disk disease, cervical lumbar spondylosis, cervical lumbar herniated disk, cervical and lumbar radiculopathy, and cervical spinal stenosis. At this time, the patient will be discontinued off the morphine, started on Bradley 5/325 mg one tablet every four hours as needed for severe pain, Robaxin 100 mg tablet every eight hours as needed for muscle spasm, and Neurontin 300 mg tablet three times a day. The patient was advised to do extensive physical therapy, and we recommend the patient to be seen by neurosurgeon for possible surgical intervention for the cervical spine and lumbar spine. The patient was discussed with Dr. Floyd and Dr. Floyd concurred. We will follow the patient. Thank you very much for the courtesy of this consultation. Ingrid Floyd M.D. BARRY Rosas DR: TERESE JOB#: [id number] CC:
[2017-07-10 04:00] VITALS: BP 140/79
[2017-07-10 07:16] LABS: ANION GAP 10 (5-15); CALCIUM 9.3 mg/dL (8.6-10.2); CARBON DIOXIDE 28 mEQ/L (20-30); CHLORIDE 107 mEQ/L (98-107); CREATININE 1.2 mg/dL (0.7-1.2); GLOMERULAR FILTRATION RATE > 60 mL/min (>60); HEMOLYSIS 8; POTASSIUM 4.3 mEQ/L (3.4-4.9); SODIUM 145 mEQ/L (135-145)
[2017-07-10 07:26] LABS: BASOPHILS % (AUTO) 0.9 % (0.0-2.0); LYMPHOCYTES % (AUTO) 34.2 % (20.0-45.0); MEAN CORPUSCULAR HEMOGLOBIN 31.5 PG (27.0-31.0); MEAN CORPUSCULAR HGB CONC 34.1 G/DL (32.0-36.0); MEAN CORPUSCULAR VOLUME 92 FL (80-99); MEAN PLATELET VOLUME 7.4 FL (6.5-10.1); MONOCYTES % (AUTO) 9.7 % (1.0-10.0); NEUTROPHILS % (AUTO) 54.3 % (45.0-75.0); PLATELET COUNT 176 K/UL (150-450); RED BLOOD COUNT 4.97 M/UL (4.70-6.10); RED CELL DISTRIBUTION WIDTH 11.2 % (11.6-14.8); WHITE BLOOD COUNT 6.5 K/UL (4.8-10.8)
[2017-07-10 08:37] VITALS: BP 147/85
--- NOTE | 2017-07-10 08:46 | History and Physical Report ---
DATE OF ADMISSION: 07/08/2017 DATE OF EVALUATION: 07/09/2017 Chief Complaint: The patient is a 66-year-old Mong[place]ian male who presents with complaint of right leg weakness. History Of Present Illness: The patient states he has history of low back pain. The patient states sometimes his right leg "gives out." The patient was walking on the sidewalk yesterday, 07/08/2017. The patient states his right leg "gave out." The patient fell on the sidewalk, this was at approximately 2 p.m. on 07/08/2017. The patient denies loss of consciousness or vertigo. The patient presented to [facility]. The patient is admitted for right leg weakness to rule out acute herniated nucleus pulposus. Review Of Systems: Constitutional: The patient denies weight loss or weight gain. The patient denies fevers or chills. HEENT: The patient denies ear or throat pain. The patient denies headache. Cardiovascular: The patient denies palpitations or chest pain. Chest: The patient denies wheeze or shortness of breath. Abdomen: The patient denies nausea, vomiting, diarrhea, or constipation. Genitourinary: The patient denies dysuria or increased frequency of urination. Neuromuscular: The patient denies seizures or generalized weakness. The patient does complain of right leg weakness as above. PAST MEDICAL HISTORY: Significant for: 1. Hypertension. 2. Chronic low back pain. 3. History of "enlarged heart." 4. Benign prostatic hypertrophy. PAST SURGICAL HISTORY: The patient denies. MEDICATIONS: The patient denies. ALLERGIES: No known drug allergies. Social History: The patient is . The patient denies tobacco use having quit 25 years previously. The patient denies alcohol use. The patient is retired. PHYSICAL EXAMINATION: Vital Signs: Temperature 97.9, respirations 20, pulse 65, and blood pressure 153/95. General: The patient is a well-developed and well-nourished Mong[place]ian male in no apparent distress. HEENT: Eyes, pupils equal and responsive to light and accommodation. Extraocular movements are intact. NECK: Supple. No lymphadenopathy. Chest: Lungs are clear to auscultation bilaterally without wheezes or rales. Cardiovascular: Regular rhythm and rate. S1, S2 normal without murmurs, rubs, or gallops. Abdomen: Soft, nontender, and nondistended. Positive bowel sounds. No evidence of hepatosplenomegaly. Currently, no rebound or guarding noted. EXTREMITIES: Negative for clubbing, cyanosis, or edema. RECTAL: Refused. GENITAL: Refused. Neurological: The patient has 3/5 motor strength on the right upper and right lower extremity. Motor strength is 5/5 . Deep tendon reflexes are 2+, plantar. Laboratory Studies: WBC 8.3, hemoglobin 16.5, hematocrit 49.7, and platelets 182,000. Sodium 142, potassium 3.8, chloride 105, CO2 25, BUN 14, creatinine 1.1, glucose 128. MRI of the cervical spine and lumbar spine are pending. ASSESSMENT: This is a 66-year-old white male with: 1. Chronic low back pain. 2. Weakness of the right lower extremity. 3. Hypertension. 4. Cardiomegaly. 5. Benign prostatic hypertrophy. TREATMENT: 1. Weakness of the right leg/chronic low back pain. An MRI of the lumbar and cervical spine are pending. Neurology consultation has been obtained with Dr. Robertson. This may be herniated nucleus pulposus and spinal stenosis. We will follow recommendation of neurology. 2. Hypertension. Cardiology consultation has been obtained with Dr. Osbaldo Sheffield. The patient denies current medications. We will follow recommendation of cardiology. 3. Cardiomegaly. Cardiology consultation has been obtained with Dr. Osbaldo Sheffield. An echocardiogram is pending. 4. Benign prostatic hypertrophy. Arnaldo Davenport M.D. DR: Ela JOB#: [id number] CC:
--- NOTE | 2017-07-10 08:46 | Consultation ---
DATE OF CONSULTATION: 07/09/2017 CARDIOLOGY CONSULTATION REFERRING PHYSICIAN: Pieter Sahni M.D. Reason For Consultation: Management of hypertension and cardiomyopathy. History of Present Illness: The patient is a 66-year-old Samoan gentleman with history of hypertension and degenerative disk disease as well as cervical spine low back from multiple accidents and falls. The patient's PMD has followed up with Neurosurgery recommended surgery but the patient elected holistic approach. The patient also has an echocardiogram and he was told that he has an enlarged heart, but he has never seen a lithographic etcher. Cardiology consultation was obtained for further evaluation and management. PAST MEDICAL HISTORY: Hypertension. MEDICATIONS: His medications per reconciliation. SOCIAL HISTORY: He lives at home. He does smoke or drink alcohol. FAMILY HISTORY: Noncontributory. Review of Systems: Review of systems was thoroughly performed and was negative other than what was mentioned in the history of present illness. PHYSICAL EXAMINATION: Vital Signs: Blood pressure is 156/94, pulse 60, respirations 18, and temperature 97 degrees. HEAD AND NECK: No JVD. LUNGS: Clear. CARDIOVASCULAR: Regular S1 and S2 with no gallop. ABDOMEN: Soft. EXTREMITIES: There is no pitting edema. Laboratory And Diagnostic Data: White count of 7, hemoglobin , hematocrit 46.1, and platelet of 180. Sodium 145, potassium 4.0, BUN of 13, creatinine 1.2 and glucose of 93. TSH 3.64. His urinalysis is negative. ASSESSMENT AND PLAN: 1. History of enlarged heart. He does not have any clinical signs or symptoms of congestive heart failure. We will check a brain natriuretic peptide as well as echocardiogram as well as EKG. 2. Hypertension. We will start the patient on Norvasc 5 mg daily. I will continue to follow the patient clinically. 3. Anxiety and depression. 4. Spinal stenosis. Surgical evaluation for protrusion. Further evaluation by spine surgery. Thank very much, Dr. Sahin, for allowing me to participate in the care of this patient. Please do not hesitate to contact for any questions regarding my evaluation. Osbaldo Sheffield M.D. DR: ORIANA JOB#: [id number] CC:
[2017-07-10] MEDS: Heparin 5000 units/ml inj SUBQ SCH (09:00)
--- NOTE | 2017-07-10 11:34 | Internal Med Progress Note ---
Subjective Date of Service: Jul 10, 2017 Physician Name Arnaldo Carcamo Attending Physician Pieter Sahni MD Current Medications Medications (Trade) Dose Ordered Sig/Amelia Route PRN Reason Start Time Stop Time Status Last Admin Dose Admin Acetaminophen (Tylenol) 650 mg Q4H PRN ORAL T>100.5 07/08/17 17:45 08/07/17 17:44 Acetaminophen/ Hydrocodone Bitart (Hassell 5/325) 1 tab Q4H PRN ORAL Severe Pain (Pain Scale 7-10) 07/09/17 09:00 07/16/17 08:59 Al Hydroxide/Mg Hydroxide (Mylanta II) 30 ml Q6H PRN ORAL dyspepsia 07/08/17 17:45 08/07/17 17:44 Amlodipine Besylate (Norvasc) 5 mg DAILY ORAL 07/10/17 09:00 08/09/17 08:59 07/10/17 09:03 Clonidine HCl (Catapres) 0.1 mg Q4H PRN ORAL hypertension 07/09/17 17:00 08/08/17 16:59 Dextrose (Dextrose 50%) STAT PRN IV Hypoglycemia 07/08/17 17:45 08/07/17 17:44 Gabapentin (Neurontin) 300 mg THREE TIMES A DAY ORAL 07/09/17 09:00 08/08/17 08:59 07/10/17 09:03 Heparin Sodium (Porcine) (Heparin 5000 units/ml) 5,000 units EVERY 12 HOURS SUBQ 07/08/17 21:00 08/07/17 20:59 Lorazepam (Ativan 2mg/ml 1ml) 0.5 mg Q4H PRN IV For Anxiety 07/08/17 17:45 07/15/17 17:44 Methocarbamol (Robaxin) 500 mg Q8H PRN ORAL muscle spasm 07/09/17 09:00 08/08/17 08:59 Mirtazapine (Remeron) 7.5 mg QHS ORAL 07/09/17 21:00 08/08/17 20:59 07/09/17 20:04 Ondansetron HCl (Zofran) 4 mg Q6H PRN IVP Nausea & Vomiting 07/08/17 17:45 08/07/17 17:44 Polyethylene Glycol (Miralax) 17 gm HSPRN PRN ORAL Constipation 07/08/17 21:00 08/07/17 20:59 Allergies: Coded Allergies: No Known Allergies (Unverified , 07/08/17) ROS Limited/Unobtainable: No Constitutional: Reports: no symptoms HEENT: Reports: no symptoms Cardiovascular: Reports: no symptoms Respiratory: Reports: no symptoms Gastrointestinal/Abdominal: Reports: no symptoms Genitourinary: Reports: no symptoms Neurologic/Psychiatric: Reports: no symptoms Subjective 66 YO M admitted with neck and low back pain. Also right leg weakness. Cover for [facility] Med-Dr Sahni. Objective Last Vital Signs Date Time Temp Pulse Resp B/P (MAP) Pulse Ox O2 Delivery O2 Flow Rate FiO2 07/10/17 09:03 61 147/85 07/10/17 08:37 98.2 19 95 Room Air General Appearance: WD/WN, no apparent distress, thin EENT: PERRL/EOMI, normal ENT inspection Neck: non-tender, normal alignment, supple, normal inspection Cardiovascular: normal peripheral pulses, normal rate, regular rhythm, no gallop/murmur, no JVD Respiratory/Chest: chest wall non-tender, lungs clear, normal breath sounds, no respiratory distress, no accessory muscle use Abdomen: normal bowel sounds, non tender, soft, no organomegaly, no mass Extremities: other - weakness right leg and right arm Neurologic: flexo operator II-XII grossly normal, other - weakness right upper and lower ext Skin: normal pigmentation, warm/dry Laboratory Tests Test 07/10/17 05:40 White Blood Count 6.5 K/UL (4.8-10.8) Red Blood Count 4.97 M/UL (4.70-6.10) Hemoglobin 15.7 G/DL (14.2-18.0) Hematocrit 45.9 % (42.0-52.0) Mean Corpuscular Volume 92 FL (80-99) Mean Corpuscular Hemoglobin 31.5 PG (27.0-31.0) H Mean Corpuscular Hemoglobin Concent 34.1 G/DL (32.0-36.0) Red Cell Distribution Width 11.2 % (11.6-14.8) L Platelet Count 176 K/UL (150-450) Mean Platelet Volume 7.4 FL (6.5-10.1) Neutrophils (%) (Auto) 54.3 % (45.0-75.0) Lymphocytes (%) (Auto) 34.2 % (20.0-45.0) Monocytes (%) (Auto) 9.7 % (1.0-10.0) Eosinophils (%) (Auto) 1.0 % (0.0-3.0) Basophils (%) (Auto) 0.9 % (0.0-2.0) Sodium Level 145 mEQ/L (135-145) Potassium Level 4.3 mEQ/L (3.4-4.9) Chloride Level 107 mEQ/L (98-107) Carbon Dioxide Level 28 mEQ/L (20-30) Anion Gap 10 (5-15) Blood Urea Nitrogen 14 mg/dL (7-23) Creatinine 1.2 mg/dL (0.7-1.2) Estimat Glomerular Filtration Rate > 60 mL/min (>60) Glucose Level 87 mg/dL (74-106) Calcium Level 9.3 mg/dL (8.6-10.2) Pro-B-Type Natriuretic Peptide 56 pg/mL (0-125) Assessment/Plan Problem List: (1) Fall with injury (2) HTN (hypertension) Assessment & Plan: Cont norvasc (3) Bradycardia Assessment & Plan: See cardiology note. (4) Cardiomegaly Assessment & Plan: await Echocardiogram. See cardiology note. (5) BPH (benign prostatic hyperplasia) Assessment & Plan: start flomax (6) Spinal stenosis in cervical region Assessment & Plan: See neurology note. (7) Protrusion of intervertebral disc of lumbosacral region Assessment & Plan: await ortho consult. (8) Weakness Status: not improved ARNALDO CARCAMO Jul 10, 2017 11:34
[2017-07-10 12:07] VITALS: BP 159/83
--- NOTE | 2017-07-10 15:00 | Cardiology Report ---
APPROVED REPORT EXAM: Two-dimensional and M-mode echocardiogram with Doppler and color Doppler. INDICATION Congestive Heart Failure M-Mode DIMENSIONS IVSd1.4 (0.7-1.1cm)Left Atrium (MM)3.7 (1.6-4.0cm) LVDd4.2 (3.5-5.6cm)Aortic Root3.1 (2.0-3.7cm) PWd1.2 (0.7-1.1cm)Aortic Cusp Exc.2.0 (1.5-2.0cm) LVDs2.8 (2.5-4.0cm) PWs2.0 cm Normal left ventricular chamber size, systolic function and wall motion. Left ventricular ejection fraction estimated to be 65 %. Mild left ventricular hypertrophy by 2-D. No evidence of pericardial effusion. Mild bi-atrial enlargement. Left atrial size at upper limits of normal. Right ventricular chamber size is within normal limits. Focal aortic valve sclerosis with adequate cusp excursion. Thickened mitral valve leaflets with normal excursion. Mitral annulus and aortic root calcification. Pulmonic valve not well visualized. Normal tricuspid valve structure. IVC at normal size with physiologic collapse. A color flow and spectral Doppler study was performed and revealed: Moderate aortic regurgitation. Mild mitral regurgitation. Mitral diastolic velocities suggest reduced left ventricular relaxation c/w mild LV diastolic dysfunction (Grade I ). Trace tricuspid regurgitation. Tricuspid systolic velocities suggests peak right ventricular systolic pressure of 17 mmHg.
[2017-07-10] MEDS ORDERED: METHOCARBAMOL500 MG ORAL (16:11)
[2017-07-10] MEDS ORDERED: NORVASC5 MG ORAL (16:11)
[2017-07-10] MEDS ORDERED: NEURONTIN300 MG ORAL (16:11)
[2017-07-10] MEDS ORDERED: NORCO 5-325 TA1 EACH ORAL (16:11)
[2017-07-10] MEDS ORDERED: MIRTAZAPINE15 M3 ORAL (16:11)
--- NOTE | 2017-07-10 16:31 | Pulmonology Progress Note ---
Assessment/Plan Problems: (1) Fall with injury (2) BPH (benign prostatic hyperplasia) (3) HTN (hypertension) (4) Protrusion of intervertebral disc of lumbosacral region (5) Spinal stenosis in cervical region Assessment/Plan wants to go home neuro note reviewed dc meds written including Subjective Interval Events: feeling better Allergies: Coded Allergies: No Known Allergies (Unverified , 07/08/17) Objective Last 24 Hour Vital Signs Date Time Temp Pulse Resp B/P (MAP) Pulse Ox O2 Delivery O2 Flow Rate FiO2 07/10/17 12:07 98.0 56 18 159/83 96 Room Air 07/10/17 09:03 61 147/85 07/10/17 08:37 98.2 61 19 147/85 95 Room Air 07/10/17 07:00 65 07/10/17 04:00 98.2 44 20 140/79 97 Room Air 07/09/17 20:00 98.1 51 18 133/72 98 Room Air Intake and Output 07/10/17 07/11/17 19:00 07:00 Intake Total 500 ml Output Total 550 ml Balance -50 ml Intake Oral 500 ml Output Urine Total 550 ml General Appearance: WD/WN HEENT: normocephalic, atraumatic Respiratory/Chest: chest wall non-tender, normal breath sounds Cardiovascular: normal peripheral pulses, normal rate Abdomen: normal bowel sounds, no organomegaly Genitourinary: normal external genitalia Extremities: no clubbing Skin: no rash Laboratory Tests 07/10/17 05:40: White Blood Count 6.5, Red Blood Count 4.97, Hemoglobin 15.7, Hematocrit 45.9, Mean Corpuscular Volume 92, Mean Corpuscular Hemoglobin 31.5H, Mean Corpuscular Hemoglobin Concent 34.1, Red Cell Distribution Width 11.2L, Platelet Count 176, Mean Platelet Volume 7.4, Neutrophils (%) (Auto) 54.3, Lymphocytes (%) (Auto) 34.2, Monocytes (%) (Auto) 9.7, Eosinophils (%) (Auto) 1.0, Basophils (%) (Auto ) 0.9, Sodium Level 145, Potassium Level 4.3, Chloride Level 107, Carbon Dioxide Level 28, Anion Gap 10, Blood Urea Nitrogen 14, Creatinine 1.2, Estimat Glomerular Filtration Rate > 60, Glucose Level 87, Calcium Level 9.3, Pro-B- Type Natriuretic Peptide 56 Current Medications Medications (Trade) Dose Ordered Sig/Amelia Route PRN Reason Start Time Stop Time Status Last Admin Dose Admin Acetaminophen (Tylenol) 650 mg Q4H PRN ORAL T>100.5 07/08/17 17:45 08/07/17 17:44 Acetaminophen/ Hydrocodone Bitart (Julian 5/325) 1 tab Q4H PRN ORAL Severe Pain (Pain Scale 7-10) 07/09/17 09:00 07/16/17 08:59 Al Hydroxide/Mg Hydroxide (Mylanta II) 30 ml Q6H PRN ORAL dyspepsia 07/08/17 17:45 08/07/17 17:44 Amlodipine Besylate (Norvasc) 5 mg DAILY ORAL 07/10/17 09:00 08/09/17 08:59 07/10/17 09:03 Clonidine HCl (Catapres) 0.1 mg Q4H PRN ORAL hypertension 07/09/17 17:00 08/08/17 16:59 Dextrose (Dextrose 50%) STAT PRN IV Hypoglycemia 07/08/17 17:45 08/07/17 17:44 Gabapentin (Neurontin) 300 mg THREE TIMES A DAY ORAL 07/09/17 09:00 08/08/17 08:59 07/10/17 13:57 Heparin Sodium (Porcine) (Heparin 5000 units/ml) 5,000 units EVERY 12 HOURS SUBQ 07/08/17 21:00 08/07/17 20:59 Lorazepam (Ativan 2mg/ml 1ml) 0.5 mg Q4H PRN IV For Anxiety 07/08/17 17:45 07/15/17 17:44 Methocarbamol (Robaxin) 500 mg Q8H PRN ORAL muscle spasm 07/09/17 09:00 08/08/17 08:59 Mirtazapine (Remeron) 15 mg BEDTIME ORAL 07/10/17 21:00 08/09/17 20:59 Ondansetron HCl (Zofran) 4 mg Q6H PRN IVP Nausea & Vomiting 07/08/17 17:45 08/07/17 17:44 Polyethylene Glycol (Miralax) 17 gm HSPRN PRN ORAL Constipation 07/08/17 21:00 08/07/17 20:59 HEYDI CASAREZ Jul 10, 2017 16:31
--- NOTE | 2017-07-10 22:35 | General Progress Note ---
Assessment/Plan Status: stable, progressing Assessment/Plan anxiety d/o insomnia -remeron 15mg po qhs Subjective Neurologic/Psychiatric: Reports: anxiety, emotional problems Allergies: Coded Allergies: No Known Allergies (Unverified , 07/08/17) Subjective the sleep is improved on remeron however he asked for higher dosage Objective Last 24 Hour Vital Signs Date Time Temp Pulse Resp B/P (MAP) Pulse Ox O2 Delivery O2 Flow Rate FiO2 07/10/17 12:07 98.0 56 18 159/83 96 Room Air 07/10/17 09:03 61 147/85 07/10/17 08:37 98.2 61 19 147/85 95 Room Air 07/10/17 07:00 65 07/10/17 04:00 98.2 44 20 140/79 97 Room Air Intake and Output 07/10/17 07/11/17 19:00 07:00 Intake Total 500 ml Output Total 550 ml Balance -50 ml Intake Oral 500 ml Output Urine Total 550 ml Laboratory Tests 07/10/17 05:40: White Blood Count 6.5, Red Blood Count 4.97, Hemoglobin 15.7, Hematocrit 45.9, Mean Corpuscular Volume 92, Mean Corpuscular Hemoglobin 31.5H, Mean Corpuscular Hemoglobin Concent 34.1, Red Cell Distribution Width 11.2L, Platelet Count 176, Mean Platelet Volume 7.4, Neutrophils (%) (Auto) 54.3, Lymphocytes (%) (Auto) 34.2, Monocytes (%) (Auto) 9.7, Eosinophils (%) (Auto) 1.0, Basophils (%) (Auto ) 0.9, Sodium Level 145, Potassium Level 4.3, Chloride Level 107, Carbon Dioxide Level 28, Anion Gap 10, Blood Urea Nitrogen 14, Creatinine 1.2, Estimat Glomerular Filtration Rate > 60, Glucose Level 87, Calcium Level 9.3, Pro-B- Type Natriuretic Peptide 56 Height (Feet): 5 Height (Inches): 11.00 Weight (Pounds): 180 General Appearance: no apparent distress, alert, thin Neurologic: alert, oriented x 3, responsive, depressed affect Khloe Carpenter M.D. Jul 10, 2017 22:35
--- NOTE | 2017-07-12 08:02 | Discharge Summary ---
Discharge Summary Hospital Course Date of Admission Jul 08, 2017 at 15:48 Date of Discharge Jul 10, 2017 at 16:55 Admitting Diagnosis weakness ALEISHA Lopez is a 66 year old male who was admitted on Jul 08, 2017 at 15:48 for Weakness Hospital Course [id number] Discharge Discharge Disposition Patient was discharged to Home (01) Discharge Diagnoses: Mari Vitale NP Jul 12, 2017 08:02
--- NOTE | 2017-07-13 03:30 | Discharge Summary 2 SIG ---
DATE OF ADMISSION: 07/08/2017 DATE OF DISCHARGE: 07/10/2017 ATTENDING PHYSICIAN: Pieter Sahni M.D. CONSULTANTS: 1. Jimbo Gilmore M.D. 2. Khloe Carpenter M.D. 3. Ingrid Floyd M.D. 4. Layo Robertson M.D. 5. Osbaldo Sheffield M.D. Brief Hospital Course: The patient is a 66-year-old English male, who came complaining of right leg weakness. He has history of low back pain and stated sometimes his right leg gives out. He was walking on the sidewalk and eventually felt like the right leg gave out. He fell on the sidewalk. He presented to ED. On evaluation, lumbar MRI showed multiple degenerative changes with right paracentral disk protrusion at L1-L2 and left paracentral disk protrusion at L2-L3. There was no evidence of acute bony trauma. Cervical spine MRI showed no definite evidence of acute bony or soft tissue trauma. There were multilevel degenerative changes most significant at C5 through C6, where there is a spinal stenosis due to disk bulge as well as bilateral neural foraminal stenosis at C6-C7. He was given pain management and was started on Wayne q.4 h. p.r.n. with Robaxin q.8 h. p.r.n. and Neurontin 300 mg t.i.d. The patient has a history of anxiety disorder and insomnia and was started on Remeron 7.5 mg at bedtime. He was given Norvasc 5 mg daily for hypertension and underwent echocardiogram with findings of EF 65% and normal left ventricular size, function, and wall motion. He underwent physical therapy and was eventually discharged home. FINAL DIAGNOSES: 1. Fall with back injury. 2. Benign prostatic hypertrophy. 3. Hypertension. 4. Protrusion of intravertebral disk of lumbosacral region. 5. Spinal stenosis in cervical region. 6. Anxiety disorder. 7. Cervical spondylosis with right C5 radiculopathy. 8. Lumbar spondylosis with right L5 radiculopathy. Disposition: The patient was discharged home. Advised to follow up with PMD. DISCHARGE MEDICATIONS: Refer to medications list. Jimbo Gilmore M.D. I have been assigned to dictate discharge summary on this account and I was not involved in the patient's management. Mari Vitale N.P. DR: Sara JOB#: [id number] CC: BUTCH
--- NOTE | 2017-07-20 02:13 | Cardiology Report ---
APPROVED REPORT EKG Measurement Heart [id number] Normal sinus rhythm Normal ECG
== END 2017-07-10 16:55 | disposition home or self-care (01) | DRG 347 ==
LOC: EDBD 13:53 → EMR 15:00 → 4W 15:48 → EDBEDREQ 16:00 → 4E 17:33
DX: M51.27 Other intervertebral disc displacement, lumbosacral region (principal); M48.02 Spinal stenosis, cervical region; I10 Essential (primary) hypertension; M50.322 Other cervical disc degeneration at C5-C6 level; M47.26 Other spondylosis with radiculopathy, lumbar region; M47.22 Other spondylosis with radiculopathy, cervical region; Y92.410 Unspecified street and highway as the place of occurrence of the external cause; R53.1 Weakness; F41.8 Other specified anxiety disorders; N40.0 Benign prostatic hyperplasia without lower urinary tract symptoms; F41.9 Anxiety disorder, unspecified; W19.XXXA Unspecified fall, initial encounter; Y92.480 Sidewalk as the place of occurrence of the external cause; G47.00 Insomnia, unspecified
CPT/HCPCS: 36415; 72141; 72148; 80048; 80053; 81003; 83880; 84443; 85025; 93005; 93306; 99285